=== PATIENT | male | born 1960 | race Caucasian/White ===

== ENCOUNTER 2018-03-31 21:47 | Emergency (ER) | payer MEDICAID, OTHER ==
[2018-03-31] MEDS: GABAPENTIN 300 MG CAP PO (23:22)
== END 2018-03-31 23:56 | disposition home or self-care (01) ==
LOC: FTE 23:56 → E/R 21:47
DX: E11.42 Type 2 diabetes mellitus with diabetic polyneuropathy (principal); I10 Essential (primary) hypertension
CPT/HCPCS: 82962; 99283